=== PATIENT | male | born 1960 | race African-American/Black ===

== ENCOUNTER → 2016-07-09 | Outpatient (CLI) | payer OTHER ==
--- NOTE | 2016-07-09 16:13 | REP ---
MRI right humerus without contrast, followed by with contrast: History: Right shoulder pain. 5.5 cm mass in the mid-shaft of the right humerus on radiographs dated 06/08/2016. Gadolinium enhancement dose: 23.5 mL as of intravenous ProHance is administered. MR technique: Sagittal axial and coronal imaging planes were utilized. T1 and T2-weighted scans were obtained with without fat saturation. MRI findings: MRI study of the humerus demonstrates the intramedullary canal lesion seen radiographically. This has a narrowed zone of transition. It measures 4.5 cm in craniocaudal span. Its margin is somewhat irregular. No periosteal reaction is seen. No adjacent marrow edema is noted. No are parosteal soft-tissue lesion is seen. The lesion shows increased T2 and decreased T1 signal in the bulk of the lesion on precontrast images. In the proximal end of the lesion there is a component that shows low T2 low T1 signal. This portion of the lesion does not enhance. The remainder the lesion shows moderate predominately peripheral enhancement postcontrast. No evidence of fluid level is seen. No soft-tissue component is appreciated. Skeletal muscle shows normal signal intensity. No vascular abnormality is observed. No other abnormal contrast enhancement is seen. Impression: Heterogeneously enhancing well circumscribed medullary canal lesion in the diaphysis of the right humerus. Lack of periosteal reaction or adjacent marrow edema suggests a nonaggressive lesion such as fibrous dysplasia, or non-ossifying fibroma, less likely enchondroma. Interval radiographic follow-up recommended 4-6 months. Signed by Chacorta Martin MD 07/09/2016 04:35 P
== END ==
LOC: M RAD 14:02
PROVIDERS: ATTEND Surgery
DX: M25.511 Pain in right shoulder (principal)
CPT/HCPCS: 73220; A9576

== ENCOUNTER → 2017-01-10 | Outpatient (CLI) | payer OTHER ==
--- NOTE | 2017-01-10 10:25 | REP ---
RIGHT HUMERUS: Two views. HISTORY: Right humeral mass lesion. Comparison study June 08, 2016. Comparison MRI study July 09, 2016. FINDINGS: In the mid humeral diaphysis, there is a well circumscribed radiolucency with sclerotic margins in the medullary canal again noted unchanged. It measures 4.8 cm in greatest length. No expansile or erosive character is seen. No endosteal erosion or remodeling is seen. No periosteal reaction is seen. No change radiographically in the intervening 7 months. These changes suggest a benign or nonaggressive lesion. Signed by Chacorta Martin MD 01/10/2017 10:45 A
== END ==
LOC: M RAD 09:28
PROVIDERS: ATTEND Surgery
DX: R22.31 Localized swelling, mass and lump, right upper limb (principal)

== ENCOUNTER → 2017-03-06 | Outpatient (CLI) | payer OTHER ==
--- NOTE | 2017-03-06 10:14 | REP ---
PELVIS LEFT HIP: Four views. HISTORY: Bone scan shows asymmetric uptake left ischium. Question left ischial lesion. FINDINGS: Four views including AP pelvis, bilateral oblique views of the left hip, and tube-angled AP view of the lower pelvis. These views show smooth rounded femoral head and intact hip joint spaces bilaterally. There is some tendon insertion site spurring at the lateral aspect of the iliac crest on both sides. No ischial lesion is seen on either side. Symphysis pubis and SI joints are unremarkable. No periosteal reaction or bone destruction is seen. IMPRESSION: No bony destructive lesions seen. Signed by Chacorta Martin MD 03/06/2017 06:31 P
== END ==
LOC: M RAD 09:00
PROVIDERS: ATTEND Surgery
DX: M89.8X2 Other specified disorders of bone, upper arm (principal)